=== PATIENT | male | born 1985 | race Caucasian/White ===

== ENCOUNTER 2017-11-03 17:29 | Emergency (ER) | payer MEDICAID ==
[~2017-11-03] VITALS: Ht 198.1 cm; Wt 177.5 kg
[2017-11-03 17:50] VITALS: BP 151/96
== END 2017-11-03 19:04 | disposition home or self-care (01) ==
LOC: ED 18:57
DX: J06.9 Acute upper respiratory infection, unspecified (principal); J01.10 Acute frontal sinusitis, unspecified
CPT/HCPCS: 99283